=== PATIENT | male | born 1990 | race American Indian/Alaskan Native ===

== ENCOUNTER 2017-12-31 18:07 | Emergency (ER) | payer OTHER | END 2017-12-31 18:33 | disposition left against medical advice (07) | LOC: ED 18:07 | DX: D57.1 Sickle-cell disease without crisis (principal); Z53.21 Procedure and treatment not carried out due to patient leaving prior to being seen by health care provider ==

== ENCOUNTER 2018-01-01 10:05 | Emergency (ER) | payer OTHER ==
[2018-01-01 10:32] LABS: Eosinophils % (Auto) 0.6 % (0.0-4.3); Hematocrit 31.2 % (35.5-45.6); Lymphocytes # (Auto) 1.2 K/mm3 (1.2-5.4); Lymphocytes % (Auto) 23.9 % (13.4-35.0); Mean Corpuscular HGB Conc 35 % (32-34); Mean Corpuscular Hemoglobin 28 pg (28-32); Mean Corpuscular Volume 80 fl (84-94); Monocytes # (Auto) 0.4 K/mm3 (0.0-0.8); Monocytes % (Auto) 7.2 % (0.0-7.3); Platelet Count 113 K/mm3 (140-440); Red Blood Count 3.92 M/mm3 (3.65-5.03)
[2018-01-01 10:35] LABS: Red Cell Distribution Width 20.1 % (13.2-15.2)
[2018-01-01] MEDS ORDERED: D5NS 0.2% 1,000 ML IV SCH (11:00)
[2018-01-01] MEDS ORDERED: DILAUDID IM ONE (12:41)
--- NOTE | 2018-01-01 12:41 | Emergency Department Report ---
ED General Adult HPI - General Chief complaint: Sickle Cell Crisis Stated complaint: SICKLE CELL CRSIS Time Seen by Provider: 01/01/18 12:36 Source: patient, RN notes reviewed Mode of arrival: Ambulatory Limitations: No Limitations - History of Present Illness Initial comments: This is a 27-year-old gentleman who is not known to this provider previously. The patient endorses a past medical history of sickle cell disease. The patient presents to the ER with a complaint of nonsmoker and a left proximal arm pain, and left proximal leg pain. This pain has been present since yesterday. It is sharp, increases with palpation, and decreases with rest and hydromorphone. Triggers for sickle cell crisis in the past including cold weather. Patient reports that his sickle crisis today feels similar to prior episodes of sickle cell crisis. He denies headache, neck pain, chest pain, abdominal pain, shortness of breath, irritative/ obstructive urinary symptoms. He reports that his symptoms today feel similar to prior episodes of mild sickle cell crisis, and he rates his initial pain scale as a 6 out of 10, and reports that he feels fairly comfortable. In the emergency room, the patient is given 2 mg of hydromorphone, which medically increased the patient's comfort and decrease his pain, and currently reports his pain is a 1. -: Gradual Location: left, upper extremity, lower extremity Radiation: non-radiation Quality: aching Consistency: intermittent Improves with: medication, rest Worsens with: movement Associated Symptoms: denies other symptoms - Related Data Home Medications Medication Instructions Recorded Confirmed Last Taken Oxycodone HCl/Acetaminophen 1 tab PO Q8H PRN 04/09/14 04/09/14 04/09/14 13:00 [OxyCODONE-Acetaminophen 10-325] Previous Rx's Medication Instructions Recorded Last Taken Type Acetaminophen [Tylenol Arthritis] 650 mg PO Q6HR PRN #30 tablet.er 01/01/18 Unknown Rx Folic Acid [Folvite] 1 mg PO QDAY #30 tablet 01/01/18 Unknown Rx Ibuprofen [Motrin] 600 mg PO Q8H PRN #30 tablet 01/01/18 Unknown Rx oxyCODONE [Roxicodone] 5 mg PO Q6HR PRN #10 tablet 01/01/18 Unknown Rx Allergies Allergy/AdvReac Type Severity Reaction Status Date / Time No Known Allergies Allergy Verified 04/09/14 13:27 ED Review of Systems ROS: Stated complaint: SICKLE CELL CRSIS Other details as noted in HPI Comment: All other systems reviewed and negative Constitutional: denies: fever Respiratory: denies: cough Cardiovascular: denies: chest pain Gastrointestinal: denies: abdominal pain Genitourinary: denies: dysuria Musculoskeletal: arthralgia, myalgia ED Past Medical Hx - Past Medical History Previous Medical History?: Yes Hx Sickle Cell Disease: Yes - Surgical History Past Surgical History?: No - Social History Smoking Status: Never Smoker Substance Use Type: None - Medications Home Medications: Home Medications Medication Instructions Recorded Confirmed Last Taken Type Oxycodone HCl/Acetaminophen 1 tab PO Q8H PRN 04/09/14 04/09/14 04/09/14 13:00 History [OxyCODONE-Acetaminophen 10-325] Acetaminophen [Tylenol Arthritis] 650 mg PO Q6HR PRN #30 tablet.er 01/01/18 Unknown Rx Folic Acid [Folvite] 1 mg PO QDAY #30 tablet 01/01/18 Unknown Rx Ibuprofen [Motrin] 600 mg PO Q8H PRN #30 tablet 01/01/18 Unknown Rx oxyCODONE [Roxicodone] 5 mg PO Q6HR PRN #10 tablet 01/01/18 Unknown Rx ED Physical Exam - General Limitations: No Limitations General appearance: alert, in no apparent distress - Head Head exam: Present: atraumatic, normocephalic - Eye Eye exam: Present: normal appearance, EOMI. Absent: nystagmus - ENT ENT exam: Present: normal exam, normal orophraynx, mucous membranes moist, normal external ear exam - Neck Neck exam: Present: normal inspection, full ROM. Absent: tenderness, meningismus - Respiratory Respiratory exam: Present: normal lung sounds bilaterally. Absent: respiratory distress - Cardiovascular Cardiovascular Exam: Present: regular rate, normal rhythm, normal heart sounds. Absent: bradycardia, tachycardia, irregular rhythm, systolic murmur, diastolic murmur, rubs, gallop - GI/Abdominal GI/Abdominal exam: Present: soft, normal bowel sounds. Absent: distended, tenderness, guarding, rebound, rigid, pulsatile mass - Rectal Rectal exam: Present: deferred - Extremities Exam Extremities exam: Present: normal inspection, full ROM, normal capillary refill , other (2+ pulses noted in the bilateral upper, lower extremities. Compartments soft. No long bony tenderness. The pelvis is stable.). Absent: pedal edema, joint swelling, calf tenderness - Back Exam Back exam: Present: normal inspection, full ROM. Absent: tenderness, CVA tenderness (R), paraspinal tenderness, vertebral tenderness - Neurological Exam Neurological exam: Present: alert, oriented X3, CN II-XII intact, normal gait, other (Extraocular movements intact. Tongue midline. No facial droop. Facial sensation intact to light touch in the V1, V2, V3 distribution bilaterally. 5 and 5 strength in 4 extremities.. Sensation is intact to light touch in 4 extremities.). Absent: motor sensory deficit - Psychiatric Psychiatric exam: Present: normal affect, normal mood - Skin Skin exam: Present: warm, dry, intact, normal color. Absent: rash ED Course Vital Signs 01/01/18 10:12 Temperature 98.7 F Pulse Rate 74 Respiratory 18 Rate Blood Pressure 136/59 O2 Sat by Pulse 99 Oximetry ED Medical Decision Making - Lab Data Result diagrams: 01/01/18 10:19 Vital Signs 01/01/18 10:12 Temperature 98.7 F Pulse Rate 74 Respiratory 18 Rate Blood Pressure 136/59 O2 Sat by Pulse 99 Oximetry Labs 01/01/18 10:19 WBC 5.1 RBC 3.92 Hgb 11.0 L Hct 31.2 L MCV 80 L MCH 28 MCHC 35 H RDW 20.1 H Plt Count 113 L Lymph % (Auto) 23.9 [place] % (Auto) 7.2 Eos % (Auto) 0.6 Baso % (Auto) 1.0 Lymph # 1.2 [place] # 0.4 Eos # 0.0 Baso # 0.0 Seg Neutrophils % 67.3 Seg Neutrophils # 3.4 Percent Retic 4.49 H - Medical Decision Making Differential diagnosis, including but not limited to: Sickle cell crisis, myalgias Assessment and plan: 27-year-old male who reports sickle cell disease with mild pain. He is afebrile with reassuring vital signs. He has an unremarkable physical exam, his physical exam does not suggest myositis, compartment syndrome , cellulitis, fracture or dislocation. His laboratory studies were unremarkable , and he appears quite comfortable after receiving hydromorphone for pain. The patient is medically suitable for discharge at this point in time. He reports that he's not had a cholecystectomy, that he's not had a splenectomy, he denies a history of avascular necrosis. Critical care attestation.: If time is entered above; I have spent that time in minutes in the direct care of this critically ill patient, excluding procedure time. ED Disposition Clinical Impression: Sickle cell anemia Qualifiers: Sickle-cell associated disorders: with unspecified crisis Qualified Code(s): D57.00 - Hb-SS disease with crisis, unspecified; D57.0 - Hb-SS disease with crisis Disposition: TO HOME OR SELFCARE Is pt being admited?: No Does the pt Need Aspirin: No Condition: Stable Instructions: Sickle Cell Crisis (ED) Additional Instructions: Rest, and avoid heavy lifting. Avoid strenuous physical activity. Take pain medication as needed/directed. Return to the ER right away with new pain, worsened pain, migration of pain, projectile vomiting, change in mental status, confusion, inability to tolerate liquid feeds. Follow up with a primary care doctor or floral designer salesperson within the next month. Referrals: CHIO KRISHNAN DO [Staff Physician] - 3-5 Days
[2018-01-01 14:04] VITALS: BP 111/56
== END 2018-01-01 14:05 | disposition home or self-care (01) ==
LOC: ED 10:05
DX: D57.80 Other sickle-cell disorders without crisis (principal)
CPT/HCPCS: 36415; 85025; 85045; 96372; 99283; J1170

== ENCOUNTER 2020-01-26 10:33 | Emergency (ER) | payer OTHER ==
[2020-01-26 10:40] VITALS: BP 143/83
[2020-01-26] MEDS ORDERED: oxyCODONE /ACETAMINOPHEN 5-325MG TAB PO ONE (11:15)
[2020-01-26 12:47] LABS: Mean Corpuscular HGB Conc 37 % (32-34); Mean Corpuscular Volume 79 fl (84-94); Platelet Count 119 K/mm3 (140-440); Red Blood Count 4.34 M/mm3 (3.65-5.03); Red Cell Distribution Width 18.6 % (13.2-15.2)
[2020-01-26 12:49] LABS: Alanine Aminotransferase 15 units/L (7-56); Albumin 4.4 g/dL (3.9-5); BUN/Creatinine Ratio 11; Blood Urea Nitrogen 10 mg/dL (9-20); Calcium 8.8 mg/dL (8.4-10.2); Hemolysis Index 10
[2020-01-26 12:51] LABS: Hematocrit 34.1 % (35.5-45.6); Hemoglobin 12.5 gm/dl (11.8-15.2)
[2020-01-26 13:14] LABS: Total Cells Counted 100
[2020-01-26 13:15] LABS: Band Neutrophils # (Manual) 0.1 K/mm3; Basophils % (Manual) 0 % (0.0-1.8); Eosinophils % (Manual) 0 % (0.0-4.3)
[2020-01-26 13:16] LABS: Hypochromasia Few; Platelet Estimate Consistent w Auto; Target Cells Few
[2020-01-26] MEDS ORDERED: HYDROmorphone 1 MG/1 ML INJ IV ONE (13:38)
[2020-01-26] MEDS ORDERED: diphenhydrAMINE 50 MG/ML VIAL IV ONE (13:38)
[2020-01-26] MEDS ORDERED: ONDANSETRON 4 MG/2 ML INJ IV ONE (13:38)
--- NOTE | 2020-01-26 13:48 | Emergency Department Report ---
ED General Adult HPI - General Chief complaint: Sickle Cell Crisis Stated complaint: SSC Source: patient Mode of arrival: Ambulatory Limitations: No Limitations - History of Present Illness Initial comments: 29-year-old male states symptoms consistent with sickle cell crisis for the past few days. He states that he has wedding makeup artist Dr. Sotelo but he has not seen him recently. He has been at this facility a few times in the past. He describes his pain as dull aching worse in his lower back and lower extremities as well as some chest pain. He was given a Percocet at triage which he states resolved his chest pain. He denies shortness of breath. He denies radiating ch est pain. Denies cough fever or chills. He has had no symptoms. He is found laying head to toe down in his gurney in no apparent distress. Patient denies chronic back pain. He has had no neurological change. He states he is not in chronic pain management. -: Gradual, days(s) Location: chest, back, lower extremity Radiation: non-radiation Quality: aching Consistency: now resolved (Chest pain resolved otherwise constant ) Associated Symptoms: denies other symptoms - Related Data Home Medications Medication Instructions Recorded Confirmed Last Taken Oxycodone HCl/Acetaminophen 1 tab PO Q8H PRN 04/09/14 04/09/14 04/09/14 13:00 [OxyCODONE-Acetaminophen 10-325] Previous Rx's Medication Instructions Recorded Last Taken Type Acetaminophen [Tylenol Arthritis] 650 mg PO Q6HR PRN #30 tablet.er 01/01/18 Unknown Rx Folic Acid [Folvite] 1 mg PO QDAY #30 tablet 01/01/18 Unknown Rx Ibuprofen [Motrin] 600 mg PO Q8H PRN #30 tablet 01/01/18 Unknown Rx oxyCODONE [roxiCODONE] 5 mg PO Q6HR PRN #7 tablet 01/26/20 Unknown Rx Allergies Allergy/AdvReac Type Severity Reaction Status Date / Time No Known Allergies Allergy Verified 04/09/14 13:27 ED Review of Systems ROS: Stated complaint: SSC Other details as noted in HPI Constitutional: denies: chills, fever Eyes: denies: eye pain, eye discharge, vision change ENT: denies: ear pain, throat pain Respiratory: denies: cough, shortness of breath, wheezing Cardiovascular: chest pain. denies: palpitations Endocrine: no symptoms reported Gastrointestinal: denies: abdominal pain, nausea, diarrhea Genitourinary: denies: urgency, dysuria Musculoskeletal: as per HPI, back pain. denies: joint swelling Skin: denies: rash, lesions Neurological: denies: headache, weakness, paresthesias Psychiatric: denies: anxiety, depression Hematological/Lymphatic: denies: easy bleeding, easy bruising ED Past Medical Hx - Past Medical History Previous Medical History?: Yes Hx Sickle Cell Disease: Yes - Social History Smoking Status: Never Smoker Substance Use Type: None - Medications Home Medications: Home Medications Medication Instructions Recorded Confirmed Last Taken Type Oxycodone HCl/Acetaminophen 1 tab PO Q8H PRN 04/09/14 04/09/14 04/09/14 13:00 History [OxyCODONE-Acetaminophen 10-325] Acetaminophen [Tylenol Arthritis] 650 mg PO Q6HR PRN #30 tablet.er 01/01/18 Unknown Rx Folic Acid [Folvite] 1 mg PO QDAY #30 tablet 01/01/18 Unknown Rx Ibuprofen [Motrin] 600 mg PO Q8H PRN #30 tablet 01/01/18 Unknown Rx oxyCODONE [roxiCODONE] 5 mg PO Q6HR PRN #7 tablet 01/26/20 Unknown Rx ED Physical Exam - General Limitations: No Limitations General appearance: alert, in no apparent distress - Head Head exam: Present: atraumatic, normocephalic - Eye Eye exam: Present: normal appearance. Absent: scleral icterus - ENT ENT exam: Present: mucous membranes moist - Neck Neck exam: Present: normal inspection. Absent: tenderness, meningismus - Respiratory Respiratory exam: Present: normal lung sounds bilaterally. Absent: respiratory distress - Cardiovascular Cardiovascular Exam: Present: regular rate, normal rhythm. Absent: systolic murmur, diastolic murmur, rubs, gallop - GI/Abdominal GI/Abdominal exam: Present: soft, normal bowel sounds. Absent: distended, tenderness, guarding, rebound, rigid - Rectal Rectal exam: Present: deferred - Extremities Exam Extremities exam: Present: normal inspection - Back Exam Back exam: Present: normal inspection, full ROM. Absent: tenderness, CVA tenderness (R), CVA tenderness (L), muscle spasm - Neurological Exam Neurological exam: Present: alert, oriented X3, CN II-XII intact. Absent: motor sensory deficit - Psychiatric Psychiatric exam: Present: normal affect, normal mood - Skin Skin exam: Present: warm, dry, intact, normal color. Absent: rash ED Course Vital Signs 01/26/20 01/26/20 10:39 13:50 Temperature 97.8 F Pulse Rate 82 Respiratory 22 22 Rate Blood Pressure 143/83 [Right] O2 Sat by Pulse 100 Oximetry - Reevaluation(s) Reevaluation #1: Patient found asleep. He was woken up to be reassessed. His pain has improved. He is appropriate for outpatient disposition. I have impressed upon him the need for follow-up with his wedding makeup artist. 01/26/20 15:05 ED Medical Decision Making - Lab Data Result diagrams: 01/26/20 12:15 01/26/20 12:15 Laboratory Results - last 24 hr 01/26/20 01/26/20 01/26/20 12:15 12:15 12:15 WBC 6.6 RBC 4.34 Hgb 12.5 Hct 34.1 L MCV 79 L MCH 29 MCHC 37 H RDW 18.6 H Plt Count 119 L Add Manual Diff Complete Total Counted 100 Seg Neuts % (Manual) 57.0 Band Neutrophils % 1.0 Lymphocytes % (Manual) 32.0 Reactive Lymphs % (Man) 0 Monocytes % (Manual) 9.0 H Eosinophils % (Manual) 0 Basophils % (Manual) 0 Metamyelocytes % 1.0 Myelocytes % 0 Promyelocytes % 0 Blast Cells % 0 Nucleated RBC % Not Reportable Seg Neutrophils # Man 3.8 Band Neutrophils # 0.1 Lymphocytes # (Manual) 2.1 Abs React Lymphs (Man) 0.0 Monocytes # (Manual) 0.6 Eosinophils # (Manual) 0.0 Basophils # (Manual) 0.0 Metamyelocytes # 0.1 Myelocytes # 0.0 Promyelocytes # 0.0 Blast Cells # 0.0 WBC Morphology Not Reportable Hypersegmented Neuts Not Reportable Hyposegmented Neuts Not Reportable Hypogranular Neuts Not Reportable Smudge Cells Not Reportable Toxic Granulation Not Reportable Toxic Vacuolation Not Reportable Dohle Bodies Not Reportable Pelger-Huet Anomaly Not Reportable Alfredo Rods Not Reportable Platelet Estimate Consistent w auto Clumped Platelets Not Reportable Plt Clumps, EDTA Not Reportable Large Platelets Not Reportable Giant Platelets Not Reportable Platelet Satelliting Not Reportable Plt Morphology Comment Not Reportable RBC Morphology Not Reportable Dimorphic RBCs Not Reportable Polychromasia Few Hypochromasia Few Poikilocytosis Not Reportable Anisocytosis Not Reportable Microcytosis Not Reportable Macrocytosis Not Reportable Spherocytes Not Reportable Pappenheimer Bodies Not Reportable Sickle Cells Not Reportable Target Cells Few Tear Drop Cells Not Reportable Ovalocytes Not Reportable Helmet Cells Not Reportable [place] Bodies Not Reportable Lawn Rings Not Reportable Hank Cells Not Reportable Bite Cells Not Reportable Crenated Cell Not Reportable Elliptocytes Not Reportable Acanthocytes (Spur) Not Reportable Rouleaux Not Reportable Hemoglobin C Crystals Not Reportable Schistocytes Not Reportable Malaria parasites Not Reportable Percent Retic 2.86 H Kyler Bodies Not Reportable Hem Pathologist Commnt No Sodium 142 Potassium 3.2 L Chloride 102.4 Carbon Dioxide 27 Anion Gap 16 BUN 10 Creatinine 0.9 Estimated GFR > 60 BUN/Creatinine Ratio 11 Glucose 127 H Calcium 8.8 Total Bilirubin 2.00 H AST 18 ALT 15 Alkaline Phosphatase 63 Troponin T < 0.010 Total Protein 6.9 Albumin 4.4 Albumin/Globulin Ratio 1.8 - EKG Data -: EKG Interpreted by Me EKG shows normal: sinus rhythm, axis, intervals, QRS complexes, ST-T waves Rate: normal - EKG Data Interpretation: normal EKG - Medical Decision Making Patient is noted to have the lowest reticulocyte count that he has had so far at this facility of 2.86. His hemoglobin is stable. He will be given fluids and analgesia. From his initial presentation and looks like outpatient disposition will be likely. Critical care attestation.: If time is entered above; I have spent that time in minutes in the direct care of this critically ill patient, excluding procedure time. ED Disposition Clinical Impression: Sickle-cell disease with pain, Hypokalemia Disposition: DC- TO HOME OR SELFCARE Is pt being admited?: No Does the pt Need Aspirin: No Condition: Stable Instructions: Sickle Cell Crisis (ED), Hypokalemia (ED) Additional Instructions: It is very important that you follow-up with your wedding makeup artist. Increase fluids. Rx as needed for pain. Prescriptions: oxyCODONE [roxiCODONE] 5 mg PO Q6HR PRN #7 tablet PRN Reason: Pain Referrals: PRIMARY CARE, [Primary Care Provider] - 3-5 Days CHIO KRISHNAN DO [Staff Physician] - 24 Hours Time of Disposition: 15:07
[2020-01-26] MEDS ORDERED: D5W/0.2% NACL 1,000 ML IV SCH (14:00)
[2020-01-26] MEDS ORDERED: POTASSIUM CHLORIDE ER 20 MEQ TAB PO ONE (15:06)
== END 2020-01-26 16:05 | disposition home or self-care (01) ==
LOC: ED 10:33
DX: D57.1 Sickle-cell disease without crisis (principal); E87.6 Hypokalemia; Z79.1 Long term (current) use of non-steroidal anti-inflammatories (NSAID); Z79.899 Other long term (current) drug therapy
CPT/HCPCS: 36415; 80053; 84484; 85007; 85025; 85045; 93005; 96361; 96374; 96375; 99284; J1170; J1200; J2405

== ENCOUNTER 2020-01-26 16:17 | Emergency (ER) | payer OTHER | END 2020-01-26 17:30 | disposition left against medical advice (07) | LOC: ED 16:17 | DX: D57.00 Hb-SS disease with crisis, unspecified (principal); Z53.21 Procedure and treatment not carried out due to patient leaving prior to being seen by health care provider ==